=== PATIENT | male | born 1960 | race Caucasian/White ===

== ENCOUNTER 2020-06-16 12:53 | Emergency (ER) | payer BC ==
[~2020-06-16] VITALS: Ht 182.9 cm; Wt 80.8 kg
[2020-06-16 13:01] VITALS: BP 115/71
[2020-06-16] MEDS ORDERED: METF-877 PO (13:13)
[2020-06-16] MEDS ORDERED: GLIP1TAB11 PO (13:13)
[2020-06-16] MEDS ORDERED: LISI10TA22 PO (13:13)
[2020-06-16] MEDS ORDERED: JANU100T PO (13:13)
[2020-06-16 13:54] LABS: HEMATOCRIT 43.1 % (42.0-52.0); HEMOGLOBIN 15.1 g/dl (13.5-17.5); MEAN CORPUSCULAR HEMOGLOBIN 30.9 pg (27.0-33.0); MEAN CORPUSCULAR VOLUME 88.3 fl (80.0-96.0); PLATELET COUNT, AUTOMATED 393 10^3/uL (150-450); RED BLOOD COUNT 4.88 10^6/uL (4.30-6.10); WHITE BLOOD COUNT 5.7 10^3/uL (4.0-10.0)
[2020-06-16 14:24] LABS: ALBUMIN 2.9 GM/DL (3.2-5.2); ALT/SGPT 71 U/L (12-78); BILIRUBIN,TOTAL 1.3 MG/DL (0.2-1.0); BLOOD UREA NITROGEN 10 MG/DL (7-18); CALCIUM LEVEL 8.8 MG/DL (8.8-10.2); CARBON DIOXIDE LEVEL 26 MEQ/L (21-32); CHLORIDE LEVEL 103 MEQ/L (98-107); CREATININE FOR GFR 0.99 MG/DL (0.70-1.30); GLOMERULAR FILTRATION RATE > 60.0 (>49); GLUCOSE, FASTING 245 MG/DL (70-100); POTASSIUM SERUM 3.9 MEQ/L (3.5-5.1); SODIUM LEVEL 137 MEQ/L (136-145); TOTAL PROTEIN 6.7 GM/DL (6.4-8.2)
[2020-06-16 14:29] LABS: ATYPICAL LYMPH 4 % (0-5); EOSINOPHILS 1 % (0-3); LYMPHOCYTES 9 % (16-44); MONOCYTES 2 % (0-5); NEUTROPHILS 78 % (28-66); PLATELET ESTIMATE NORMAL (NORMAL)
[2020-06-16] MEDS ORDERED: EPINEPHrine INJ 1 MG/ML 1ML AMP IM PRN (14:50)
[2020-06-16] MEDS ORDERED: CASIRIVIMAB (REGN10933) 1,200 MG, IMDEVIMAB (REGN10987) 1,200 MG in NS 230 ML IV ONE (14:50)
[2020-06-16] MEDS ORDERED: diphenhydrAMINE 50MG/ML VIAL (J1200) IV PRN (14:50)
[2020-06-16] MEDS ORDERED: ACETAMINOPHEN TAB 650MG DOSE (2X325MG) PO ONE (14:50)
[2020-06-16] MEDS ORDERED: ALBUTEROL SULFATE 2.5 MG/0.5 ML INH NEB SOLN INH PRN (14:50)
[2020-06-16] MEDS ORDERED: NS 1,000 ML IV SCH (14:50)
[2020-06-16] MEDS ORDERED: ALBUTEROL 90 MCG/ACT 8GM HFA INHALER INH PRN (14:50)
[2020-06-16] MEDS ORDERED: methylPREDNISolone 125MG 2ML VIAL IV PRN (14:50)
[2020-06-16] MEDS ORDERED: BAMLANIVIMAB 700 MG, ETESEVIMAB 1,400 MG in NS 250 ML IV ONE (14:50)
[2020-06-16] MEDS ORDERED: diphenhydrAMINE 50MG/ML VIAL (J1200) IV ONE (14:50)
[2020-06-16] MEDS ORDERED: methylPREDNISolone 125MG 2ML VIAL IV ONE (14:55)
--- NOTE | 2020-06-16 15:31 | REP ---
INDICATION: sob, COVID positive. COMPARISON: None. TECHNIQUE: AP portable FINDINGS: Peripheral patchy infiltrates bilaterally. More consolidative areas peripherally in the right upper lung zone and left lateral base. No pleural effusion. Heart not enlarged. No base mediastinal or hilar contour abnormality. The aorta intact. Airway midline. No vascular redistribution. No free air under the diaphragm. IMPRESSION: 1. Pattern of peripheral patchy infiltrates in this patient with a positive test for COVID. Findings are suspicious for COVID pneumonia bilaterally in the peripheral distribution more consolidative in the right upper and left lower lung zones peripherally. No gross effusion. <Electronically signed by Michael Jason > 06/16/20 [id number]
[2020-06-17] MEDS ORDERED: [UNRECOGNIZED DRUG - CODE] (18:31)
[2020-06-17] MEDS ORDERED: PRED10TA2 PO (18:47)
[2020-06-17] MEDS ORDERED: VENTAER INH (18:47)
== END 2020-06-16 15:53 | disposition home health service (06) ==
LOC: M ED 12:53 → ENRESERV 15:11 → M ED 15:53
DX: R91.8 Other nonspecific abnormal finding of lung field (principal); U07.1 COVID-19; R06.02 Shortness of breath; E11.9 Type 2 diabetes mellitus without complications; Z79.51 Long term (current) use of inhaled steroids; Z79.84 Long term (current) use of oral hypoglycemic drugs; Z79.52 Long term (current) use of systemic steroids; Z79.899 Other long term (current) drug therapy

== ENCOUNTER 2020-06-16 15:55 | Outpatient (CLI) | payer BC ==
[~2020-06-16] VITALS: Ht 182.9 cm; Wt 80.8 kg
--- NOTE | 2020-06-16 15:42 | IPNPDOC ---
Date Seen The patient was seen on 06/16/20. Progress Note SUBJECTIVE: 60-year-old diabetic male presented to the emergency room persistent shortness of breath and cough productive of white sputum since Monday last week and tested positive for coronavirus. He admits to chills without documented fever. Patient complains of decrease in appetite without any weight loss, loss of taste, nausea, vomiting, headache, chest pain, pressure, tightness. In the ER. Oxygen saturation on room air was 96% with exertion and at rest. Hospitalist was called to provide informed consent for coronavirus immunoglobulin infusion. OBJECTIVE PHYSICAL EXAMINATION: VITAL SIGNS: Please see below. GENERAL: Awake, alert, oriented to person, place and time, answering questions appropriately. No respiratory distress or use of respiratory accessory muscles. No conversational dyspnea. No pallor, cyanosis HEENT: Moist mucous membranes. No cervical lymphadenopathy, thyromegaly or jugular venous distention. No carotid bruit CARDIOVASCULAR: S1, S2, sinus rhythm, no murmurs, rubs or gallops RESPIRATORY: Clear to auscultation. There are entry is equal bilaterally. No adventitious breath sounds ABDOMINAL: Positive bowel sounds, soft, nontender, nondistended, no hepatosplenomegaly EXTREMITIES: No cyanosis, clubbing or pitting edema LABORATORY DATA, IMAGING STUDIES, MICROBIOLOGY: Please see below. ASSESSMENT AND PLAN: 60-year-old diabetic male presented to the emergency room persistent shortness of breath and cough productive of white sputum since Monday last week and tested positive for coronavirus. He admits to chills without documented fever. Patient complains of decrease in appetite without any weight loss, loss of taste, nausea, vomiting, headache, chest pain, pressure, tightness. In the ER. Oxygen saturation on room air was 96% with exertion and at rest. Hospitalist was called to provide informed consent for coronavirus immunoglobulin infusion. Coronavirus infection -Positive Covid 19 with no hypoxia or multi-organ involvement. -Informed consent has been signed for immunoglobulin infusion per protocol Type 2 diabetes -Resume home meds at discharge Disposition: Discharge home after infusion if no adverse effects.outpatient follow-up with primary care physician within 5 days of discharge TESSA WILDE MD Jun 16, 2020 15:42
[~2020-06-16 15:55] MED LIST: ACETAMINOPHEN TAB 650MG DOSE (2X325MG) PO ONE; ALBUTEROL 90 MCG/ACT 8GM HFA INHALER INH PRN; ALBUTEROL SULFATE 2.5 MG/0.5 ML INH NEB SOLN INH PRN; EPINEPHrine INJ 1 MG/ML 1ML AMP IM PRN; GLIP1TAB11 PO; JANU100T PO; LISI10TA22 PO; METF-877 PO; NS 1,000 ML IV SCH; diphenhydrAMINE 50MG/ML VIAL (J1200) IV ONE; diphenhydrAMINE 50MG/ML VIAL (J1200) IV PRN; methylPREDNISolone 125MG 2ML VIAL IV ONE; methylPREDNISolone 125MG 2ML VIAL IV PRN
[2020-06-16 16:01] VITALS: BP 126/65
[2020-06-16] MEDS ORDERED: BAMLANIVIMAB 700 MG, ETESEVIMAB 1,400 MG in NS 250 ML IV ONE (17:00)
[2020-06-16 17:15] VITALS: BP 150/75
[2020-06-16 17:46] VITALS: BP 149/77
[2020-06-16 18:00] VITALS: BP 154/80
[2020-06-16 18:55] VITALS: BP 125/74
[2020-06-17] MEDS ORDERED: [UNRECOGNIZED DRUG - CODE] (18:31)
[2020-06-17] MEDS ORDERED: VENTAER INH (18:47)
[2020-06-17] MEDS ORDERED: PRED10TA2 PO (18:47)
== END 2020-06-16 18:00 | disposition home or self-care (01) ==
LOC: M 4MAIN 15:55 → M OPCLI4 15:55
PROVIDERS: ATTEND General Practice
DX: U07.1 COVID-19 (principal); E11.9 Type 2 diabetes mellitus without complications
CPT/HCPCS: J1200; J2930

== ENCOUNTER 2020-06-17 16:25 | Emergency (ER) | payer BC ==
[~2020-06-17] VITALS: Ht 182.9 cm; Wt 80.4 kg
[~2020-06-17 16:25] MED LIST changes: -ACETAMINOPHEN TAB 650MG DOSE (2X325MG) PO ONE; -ALBUTEROL 90 MCG/ACT 8GM HFA INHALER INH PRN; -ALBUTEROL SULFATE 2.5 MG/0.5 ML INH NEB SOLN INH PRN; -EPINEPHrine INJ 1 MG/ML 1ML AMP IM PRN; -NS 1,000 ML IV SCH; -diphenhydrAMINE 50MG/ML VIAL (J1200) IV ONE; -diphenhydrAMINE 50MG/ML VIAL (J1200) IV PRN; -methylPREDNISolone 125MG 2ML VIAL IV ONE; -methylPREDNISolone 125MG 2ML VIAL IV PRN
[2020-06-17] MEDS ORDERED: dexameTHASONE 20MG/5ML VIAL (J1100 PER 1MG) IV ONE (17:25)
[2020-06-17] MEDS: COMBIVENT RESPIMAT 100-20MCG INHALER 4GM INH SCH ×3 (17:35→18:46)
[2020-06-17 17:41] LABS: BASO % 0.2 % (0.0-1.0); EOS # 0.1 10^3/uL (0.0-0.5); EOS % 0.9 % (0.0-3.0); HEMATOCRIT 43.3 % (42.0-52.0); HEMOGLOBIN 14.8 g/dl (13.5-17.5); LYMPH # 0.8 10^3/uL (1.5-5.0); LYMPH % 8.5 % (24.0-44.0); MEAN CORPUSCULAR HEMOGLOBIN 30.5 pg (27.0-33.0); MEAN CORPUSCULAR HGB CONC 34.2 g/dl (32.0-36.5); MEAN CORPUSCULAR VOLUME 89.3 fl (80.0-96.0); MONO # 0.8 10^3/uL (0.0-0.8); MONO % 8.2 % (2.0-8.0); NEUTROPHILS # 7.5 10^3/uL (1.5-8.5); NEUTROPHILS % 81.5 % (36.0-66.0); PLATELET COUNT, AUTOMATED 515 10^3/uL (150-450); RED BLOOD COUNT 4.85 10^6/uL (4.30-6.10); WHITE BLOOD COUNT 9.2 10^3/uL (4.0-10.0)
[2020-06-17 18:11] LABS: ALBUMIN 2.6 GM/DL (3.2-5.2); ALT/SGPT 55 U/L (12-78); BILIRUBIN,TOTAL 0.7 MG/DL (0.2-1.0); BLOOD UREA NITROGEN 20 MG/DL (7-18); C REACTIVE PROTEIN QUANTITATIV 9.29 MG/DL (0.00-0.30); CALCIUM LEVEL 8.9 MG/DL (8.8-10.2); CARBON DIOXIDE LEVEL 31 MEQ/L (21-32); CHLORIDE LEVEL 104 MEQ/L (98-107); CK-MB VALUE MASS 1.1 NG/ML (<3.6); CPK CREATINE PHOSPHOKINASE 45 U/L (39-308); CREATININE FOR GFR 1.02 MG/DL (0.70-1.30); FERRITIN 685 NG/ML (26-388); GLOMERULAR FILTRATION RATE > 60.0 (>49); GLUCOSE, FASTING 162 MG/DL (70-100); LDH LACTATE DEHYDROGENASE 276 U/L (87-241); MB/CK RELATIVE INDEX 2.44 (< OR =4); POTASSIUM SERUM 3.8 MEQ/L (3.5-5.1); SODIUM LEVEL 139 MEQ/L (136-145); TOTAL PROTEIN 6.5 GM/DL (6.4-8.2); TROPONIN I < 0.02 NG/ML (< 0.10)
[2020-06-17] MEDS ORDERED: [UNRECOGNIZED DRUG - CODE] (18:31)
[2020-06-17] MEDS ORDERED: VENTAER INH (18:47)
[2020-06-17] MEDS ORDERED: PRED10TA2 PO (18:47)
[2020-06-17 19:35] VITALS: BP 144/78
== END 2020-06-17 20:18 | disposition home or self-care (01) ==
LOC: M ED 16:25
DX: U07.1 COVID-19 (principal); J40 Bronchitis, not specified as acute or chronic; E11.9 Type 2 diabetes mellitus without complications; I10 Essential (primary) hypertension; Z79.84 Long term (current) use of oral hypoglycemic drugs; Z79.899 Other long term (current) drug therapy
CPT/HCPCS: 80053; 82550; 82553; 82728; 82803; 83605; 83615; 84484; 85025; 85379; 86140; 87040; 96374; 99284; J1100

== ENCOUNTER → 2021-04-12 | Outpatient (REF) | payer BC ==
[~2021-04-12] MED LIST changes: +PRED10TA2 PO; +VENTAER INH; +[UNRECOGNIZED DRUG - CODE]
== END ==
LOC: M SFHCCLAY 07:49
PROVIDERS: ATTEND Family Medicine
DX: E11.9 Type 2 diabetes mellitus without complications (principal)

== ENCOUNTER → 2021-08-23 | Outpatient (REF) | payer BC ==
[2021-08-23 13:01] LABS: BLOOD UREA NITROGEN 14 MG/DL (7-18); CALCIUM LEVEL 9.5 MG/DL (8.8-10.2); CARBON DIOXIDE LEVEL 31 MEQ/L (21-32); CHLORIDE LEVEL 105 MEQ/L (98-107); CREATININE FOR GFR 1.07 MG/DL (0.70-1.30); GLOMERULAR FILTRATION RATE > 60.0 (>49); GLUCOSE, FASTING 185 MG/DL (70-100); POTASSIUM SERUM 4.5 MEQ/L (3.5-5.1); SODIUM LEVEL 140 MEQ/L (136-145)
[2021-08-23 13:03] LABS: HEMOGLOBIN A1c 6.5 %
== END ==
LOC: M SFHCCLAY 07:44
PROVIDERS: ATTEND Family Medicine
DX: E11.9 Type 2 diabetes mellitus without complications (principal)

== ENCOUNTER → 2022-02-25 | Outpatient (REF) | payer BC ==
[2022-02-25 11:52] LABS: BLOOD UREA NITROGEN 18 MG/DL (9-23); CALCIUM LEVEL 8.7 MG/DL (8.3-10.6); CARBON DIOXIDE LEVEL 30 MMOL/L (20-31); CHLORIDE LEVEL 100 MMOL/L (98-107); CHOLESTEROL LEVEL 204 MG/DL (<200); CHOLESTEROL RISK RATIO 3.57 (<5); CREATININE FOR GFR 0.95 MG/DL (0.70-1.30); GLOMERULAR FILTRATION RATE > 60.0 (>49); GLUCOSE, FASTING 227 MG/DL (74-106); LDL CHOLESTEROL 106.4 MG/DL (<100); NON-HDL-C 147 MG/DL; POTASSIUM SERUM 4.2 MMOL/L (3.5-5.1); SODIUM LEVEL 137 MMOL/L (136-145); TRIGLYCERIDES LEVEL 203 MG/DL (<150)
[2022-02-25 11:54] LABS: HEMOGLOBIN A1c 6.8 % (4.0-6.0)
[2022-02-25 12:10] LABS: CREATININE, URINE 152.2 MG/DL; MAU/CREAT RATIO 13.1 MCG/MG (0.0-30.0)
== END ==
LOC: M SFHCCLAY 07:10
PROVIDERS: ATTEND Nurse Practitioner Family
DX: Z00.00 Encounter for general adult medical examination without abnormal findings (principal); E11.9 Type 2 diabetes mellitus without complications

== ENCOUNTER → 2022-08-29 | Outpatient (REF) | payer BC ==
[2022-08-29 11:49] LABS: BLOOD UREA NITROGEN 11 MG/DL (9-23); CALCIUM LEVEL 8.6 MG/DL (8.3-10.6); CARBON DIOXIDE LEVEL 28 MMOL/L (20-31); CHLORIDE LEVEL 105 MMOL/L (98-107); CHOLESTEROL LEVEL 142 MG/DL (<200); CHOLESTEROL RISK RATIO 3.14 (<5); CREATININE FOR GFR 1.06 MG/DL (0.70-1.30); GLOMERULAR FILTRATION RATE > 60.0 (>49); GLUCOSE, FASTING 196 MG/DL (74-106); HDL CHOLESTEROL 45.1 MG/DL (>40); LDL CHOLESTEROL 76.9 MG/DL (<100); NON-HDL-C 96.9 MG/DL; POTASSIUM SERUM 4.2 MMOL/L (3.5-5.1); SODIUM LEVEL 138 MMOL/L (136-145); TRIGLYCERIDES LEVEL 100 MG/DL (<150)
[2022-08-29 12:17] LABS: HEMOGLOBIN A1c 6.9 % (4.0-6.0)
== END ==
LOC: M SFHCCLAY 07:09
PROVIDERS: ATTEND Nurse Practitioner Family
DX: E11.9 Type 2 diabetes mellitus without complications (principal); I10 Essential (primary) hypertension; E78.5 Hyperlipidemia, unspecified

== ENCOUNTER → 2023-03-22 | Outpatient (REF) | payer BC ==
[2023-03-22 12:46] LABS: ALBUMIN 3.8 G/DL (3.2-5.2); ALKALINE PHOSPHATASE 69 U/L (46-116); ALT/SGPT 28 U/L (7.0-40); AST/SGOT 14 U/L (<34); BILIRUBIN,TOTAL 1.1 MG/DL (0.3-1.2); BLOOD UREA NITROGEN 15 MG/DL (9-23); CALCIUM LEVEL 9.3 MG/DL (8.3-10.6); CARBON DIOXIDE LEVEL 28 MMOL/L (20-31); CHLORIDE LEVEL 103 MMOL/L (98-107); CHOLESTEROL LEVEL 213 MG/DL (<200); CHOLESTEROL RISK RATIO 3.54 (<5); CREATININE FOR GFR 0.96 MG/DL (0.70-1.30); GLOMERULAR FILTRATION RATE > 60.0 (>49); GLUCOSE, FASTING 212 MG/DL (74-106); HDL CHOLESTEROL 60.1 MG/DL (>40); LDL CHOLESTEROL 131.9 MG/DL (<100); NON-HDL-C 152.9 MG/DL; POTASSIUM SERUM 4.6 MMOL/L (3.5-5.1); SODIUM LEVEL 135 MMOL/L (136-145); TOTAL PROTEIN 6.8 G/DL (5.7-8.2); TRIGLYCERIDES LEVEL 105 MG/DL (<150)
[2023-03-22 12:48] LABS: FREE T4 1.45 NG/DL (0.89-1.76); THYROID STIMULATING HORMONE 1.754 uIU/ML (0.55-4.78)
[2023-03-22 13:15] LABS: CREATININE, URINE 132.6 MG/DL; MAU/CREAT RATIO 9.8 MCG/MG (0.0-30.0)
== END ==
LOC: M SFHCCLAY 08:04
PROVIDERS: ATTEND Nurse Practitioner Family
DX: F51.01 Primary insomnia (principal); E11.9 Type 2 diabetes mellitus without complications; I11.9 Hypertensive heart disease without heart failure; E78.5 Hyperlipidemia, unspecified; R53.83 Other fatigue

== ENCOUNTER → 2023-09-25 | Outpatient (REF) | payer OTHER ==
[2023-09-25 12:07] LABS: ALBUMIN 3.7 G/DL (3.2-5.2); ALKALINE PHOSPHATASE 64 U/L (46-116); ALT/SGPT 13 U/L (7.0-40); AST/SGOT < 8 U/L (<34); BLOOD UREA NITROGEN 21 MG/DL (9-23); CALCIUM LEVEL 9.3 MG/DL (8.3-10.6); CARBON DIOXIDE LEVEL 29 MMOL/L (20-31); CHLORIDE LEVEL 102 MMOL/L (98-107); CHOLESTEROL LEVEL 203 MG/DL (<200); CHOLESTEROL RISK RATIO 4.15 (<5); CREATININE FOR GFR 1.09 MG/DL (0.70-1.30); GLOMERULAR FILTRATION RATE > 60.0 (>49); GLUCOSE, FASTING 162 MG/DL (74-106); HDL CHOLESTEROL 48.9 MG/DL (>40); LDL CHOLESTEROL 120.3 MG/DL (<100); NON-HDL-C 154.1 MG/DL; POTASSIUM SERUM 4.4 MMOL/L (3.5-5.1); SODIUM LEVEL 137 MMOL/L (136-145); TOTAL PROTEIN 6.6 G/DL (5.7-8.2); TRIGLYCERIDES LEVEL 169 MG/DL (<150)
[2023-09-25 12:37] LABS: HEMOGLOBIN A1c 7.2 % (4.0-6.0)
== END ==
LOC: M SFHCCLAY 08:13
PROVIDERS: ATTEND Nurse Practitioner Family
DX: I11.9 Hypertensive heart disease without heart failure (principal); E11.9 Type 2 diabetes mellitus without complications; F51.01 Primary insomnia; E78.5 Hyperlipidemia, unspecified; R53.83 Other fatigue; N52.9 Male erectile dysfunction, unspecified; J06.9 Acute upper respiratory infection, unspecified

== ENCOUNTER → 2024-03-19 | Outpatient (REF) | payer MEDICARE ==
[2024-03-19 12:02] LABS: ALBUMIN 3.9 G/DL (3.2-5.2); ALKALINE PHOSPHATASE 60 U/L (40-129); ALT/SGPT 15 U/L (7.0-40); AST/SGOT 9 U/L (<34); BILIRUBIN,TOTAL 1.1 MG/DL (0.3-1.2); BLOOD UREA NITROGEN 17 MG/DL (9-23); CALCIUM LEVEL 9.9 MG/DL (8.3-10.6); CARBON DIOXIDE LEVEL 30 MMOL/L (20-31); CHLORIDE LEVEL 101 MMOL/L (98-107); CHOLESTEROL LEVEL 206 MG/DL (<200); CHOLESTEROL RISK RATIO 3.43 (<5); CREATININE FOR GFR 0.98 MG/DL (0.70-1.30); GLOMERULAR FILTRATION RATE > 60.0 (>49); GLUCOSE, FASTING 181 MG/DL (74-106); HDL CHOLESTEROL 59.9 MG/DL (>40); LDL CHOLESTEROL 112.3 MG/DL (<100); NON-HDL-C 146.1 MG/DL; POTASSIUM SERUM 4.4 MMOL/L (3.5-5.1); SODIUM LEVEL 138 MMOL/L (136-145); TOTAL PROTEIN 7.3 G/DL (5.7-8.2); TRIGLYCERIDES LEVEL 169 MG/DL (<150)
[2024-03-19 12:20] LABS: HEMOGLOBIN A1c 6.3 % (4.0-6.0)
== END ==
LOC: M SFHCCLAY 07:36
PROVIDERS: ATTEND Nurse Practitioner Family
DX: I11.9 Hypertensive heart disease without heart failure (principal); E11.9 Type 2 diabetes mellitus without complications; F51.01 Primary insomnia; E78.5 Hyperlipidemia, unspecified; R53.83 Other fatigue; N52.9 Male erectile dysfunction, unspecified

== ENCOUNTER → 2025-02-25 | Outpatient (REF) | payer MEDICARE ==
[2025-02-25 18:14] LABS: ALT/SGPT 15.0 U/L (7.0-40); AST/SGOT 12.0 U/L (<34); CALCIUM LEVEL 9.4 MG/DL (8.3-10.6); CARBON DIOXIDE LEVEL 30.0 MMOL/L (20-31); CHLORIDE LEVEL 100.0 MMOL/L (98-107); CHOLESTEROL LEVEL 165.0 MG/DL (<200); CHOLESTEROL RISK RATIO 2.78 (<5); CREATININE FOR GFR 1.01 MG/DL (0.70-1.30); GLOMERULAR FILTRATION RATE 82.0 (>49); LDL CHOLESTEROL 85.8 MG/DL (<100); NON-HDL-C 105.8 MG/DL; POTASSIUM SERUM 4.1 MMOL/L (3.5-5.1); PSA SCREENING 0.98 NG/ML (< 4.00); SODIUM LEVEL 138.0 MMOL/L (136-145); TRIGLYCERIDES LEVEL 100.0 MG/DL (<150)
[2025-02-25 18:33] LABS: ESTIMATED AVERAGE GLUCOSE 134.0 MG/DL (60-110)
== END ==
LOC: M SFHCCLAY 09:49
PROVIDERS: ATTEND Nurse Practitioner Family
DX: I11.9 Hypertensive heart disease without heart failure (principal); E11.9 Type 2 diabetes mellitus without complications; F51.01 Primary insomnia; E78.5 Hyperlipidemia, unspecified; N52.9 Male erectile dysfunction, unspecified; R41.3 Other amnesia; Z12.5 Encounter for screening for malignant neoplasm of prostate
CPT/HCPCS: 80053; 80061; 83036; G0103